=== PATIENT | female | born 1985 | race African-American/Black ===

== ENCOUNTER 2022-02-02 16:14 | Emergency (ER) | payer MEDICAID ==
[~2022-02-02] VITALS: Ht 170.2 cm; Wt 90.0 kg
[2022-02-02] MEDS ORDERED: ONDANSETRON HCL 4MG/2ML INJ IV SCH (17:06)
[2022-02-02] MEDS ORDERED: SODIUM CHLORIDE 0.9% 1,000 ML IV SCH (17:15)
[2022-02-02] MEDS ORDERED: LEVETIRACETAM 1000MG PREMIX 100 ML IV SCH (17:15)
[2022-02-02 17:25] LABS: BASOPHILS % 0.4 % (0.0-2.0); HEMATOCRIT. 32.6 % (36.0-48.0); HEMOGLOBIN. 10.3 g/dL (12.0-16.0); LYMPHOCYTES % 16.9 % (20.0-50.0); MEAN CORPUSCULAR HEMOGLOBIN 26.7 pg (28.0-32.0); MEAN CORPUSCULAR VOLUME 84.8 fL (81.0-99.0); MEAN PLATELET VOLUME 7.8 fl (7.4-10.4); MONOCYTES % 6.1 % (2.0-8.0); NEUTROPHILS % 75.6 % (40.0-76.0); PLATELET 505 x1000/uL (130-400); RED BLOOD CELL COUNT 3.85 mill/uL (4.2-5.4); RED CELL DISTRIBUTION WIDTH 17.8 % (11.6-14.6)
[2022-02-02 17:31] LABS: CHLORIDE 106 mEq/L (98-107)
[2022-02-02 17:33] LABS: HCG SCREEN NEGATIVE
[2022-02-02 17:44] LABS: ETHANOL BLOOD < 10 mg/dL; VALPROIC ACID <3.0 ug/mL ug/mL (50-100)
[2022-02-02 18:13] LABS: CARBAMAZEPINE < 0.5 ug/mL (4-12); PHENOBARBITAL < 2.1 ug/mL (15.0-40.0)
[2022-02-02 20:48] LABS: CLARITY URINE CLEAR (CLEAR); COLOR URINE YELLOW (YELLOW); KETONES URINE NEGATIVE (NEGATIVE); LEUKOCYTE ESTERASE URINE NEGATIVE (NEGATIVE); NITRITE URINE NEGATIVE (NEGATIVE); OCCULT BLOOD URINE 2+ (NEGATIVE); PH URINE 5.5 (4.5-8.0); PROTEIN URINE NEGATIVE (NEGATIVE); SPECIFIC GRAVITY URINE 1.014 (1.005-1.030); UROBILINOGEN URINE 0.2 E.U./dL (0.2-1.0)
[2022-02-02 20:59] LABS: *AMPHETAMINES SCREEN URINE NEGATIVE (NEGATIVE); *BARBITURATES SCREEN URINE NEGATIVE (NEGATIVE); *BENZODIAZEPINES SCREEN URINE NEGATIVE (NEGATIVE); METHADONE URINE SCREEN NEGATIVE (NEGATIVE); OPIATES URINE SCREEN NEGATIVE (NEGATIVE); PHENCYCLIDINE URINE SCREEN NEGATIVE (NEGATIVE)
[2022-02-02 21:03] LABS: *COCAINE SCREEN URINE PRESUMTIVE POSITIVE (NEGATIVE); CANNABINOID URINE SCREEN PRESUMTIVE POSITIVE (NEGATIVE)
[2022-02-02] MEDS ORDERED: ACETAMINOPHEN 325MG TABLET PO ONE (22:45)
[2022-02-03] VITALS: BP 143/71
[2022-02-03] MEDS ORDERED: ACETAMINOPHEN 325MG TABLET PO NR (00:45)
== END 2022-02-03 03:26 | disposition home or self-care (01) ==
LOC: ER 16:14
DX: G40.909 Epilepsy, unspecified, not intractable, without status epilepticus (principal); M25.572 Pain in left ankle and joints of left foot; M79.672 Pain in left foot
CPT/HCPCS: 36415; 73610; 73630; 80053; 80156; 80165; 80184; 80185; 80305; 80320; 81003; 83690; 84703; 85025; 93005; 96374; 99291; J1953; J2405; G0480